=== PATIENT | female | born 1950 | race Caucasian/White ===

== ENCOUNTER 2019-02-12 22:44 | Emergency (ER) | payer OTHER ==
[2019-02-12 22:49] VITALS: TEMP 98; BMI 25.2
--- NOTE | 2019-02-12 23:06 | PDOC ---
History of Present Illness - General Chief Complaint: Blood Pressure Problem Stated Complaint: HYPERTENSION Time Seen by Provider: 02/12/19 23:06 - History of Present Illness Initial Comments: 02/12/19 23:37 Ms. Natarajan is a 68 yo female w/ pmh of HTN, HLD, and DM who presents for evaluation of 5 day history of elevated blood pressure. Patient reports she has additionally had dizziness for the last day. Patient visited her cesspool cleaner today who adjusted her medication however patient became concerned regarding dizziness. Patient had been taking clonadine .1 and losartan 100 daily. Was switched several days ago to losartan 100 and hctz 12.5; today cesspool cleaner recommended adding atenolol with chlorthalidone (50/25). The patient denies chest pain, shortness of breath, headache and dizziness. Denies fever, chills, nausea, vomit, diarrhea and constipation. Denies dysuria, frequency, urgency and hematuria. Past History - Past Medical History Allergies/Adverse Reactions: Allergies Allergy/AdvReac Type Severity Reaction Status Date / Time diclofenac Allergy Severe Rash Verified 02/12/19 23:39 Home Medications: Ambulatory Orders Atenolol/Chlorthalidone [Atenolol-Chlorthalidone 50-25] 1 each PO DAILY Atorvastatin Ca [Lipitor] 40 mg PO DAILY 02/12/19 Gabapentin [Neurontin -] 300 mg PO TID 02/12/19 Glipizide 5 mg PO BID 02/12/19 Hydrochlorothiazide [Hctz -] 12.5 mg PO DAILY 02/12/19 Losartan Potassium [Cozaar] 100 mg PO DAILY 02/12/19 COPD: No Diabetes: Yes HTN: Yes Hypercholesterolemia: Yes - Surgical History Abdominal Surgery: Yes - Suicide/Smoking/Psychosocial Hx Smoking History: Never smoked Review of Systems - Review of Systems Comments:: 02/12/19 23:42 GENERAL/CONSTITUTIONAL: No fever or chills. No weakness. HEAD, EYES, EARS, NOSE AND THROAT: No change in vision. No ear pain or discharge. No sore throat. CARDIOVASCULAR: No chest pain or shortness of breath RESPIRATORY: No cough, wheezing, or hemoptysis. GASTROINTESTINAL: No nausea, vomiting, diarrhea or constipation. GENITOURINARY: No dysuria, frequency, or change in urination. MUSCULOSKELETAL: No joint or muscle swelling or pain. No neck or back pain. SKIN: No rash NEUROLOGIC: +Dizziness starting at approximately 11:30am this morning. No headache, vertigo, loss of consciousness, or change in strength/sensation. ENDOCRINE: No increased thirst. No abnormal weight change HEMATOLOGIC/LYMPHATIC: No anemia, easy bleeding, or history of blood clots. ALLERGIC/IMMUNOLOGIC: No hives or skin allergy. *Physical Exam - Vital Signs Last Vital Signs Temp Pulse Resp BP Pulse Ox 98.0 F 58 L 18 187/89 H 95 02/12/19 22:46 02/12/19 22:46 02/12/19 22:46 02/12/19 22:46 02/12/19 22:46 - Physical Exam Comments: 02/12/19 23:44 GENERAL: Awake, alert, and fully oriented, in no acute distress HEAD: No signs of trauma, normocephalic, atraumatic EYES: PERRLA, EOMI, sclera anicteric, conjunctiva clear ENT: Auricles normal inspection, hearing grossly normal, nares patent, oropharynx clear without exudates. Moist mucosa NECK: Normal ROM, supple, no lymphadenopathy, JVD, or masses LUNGS: No distress, speaks full sentences, clear to auscultation bilaterally HEART: Regular rate and rhythm, normal S1 and S2, no murmurs, rubs or gallops, peripheral pulses normal and equal bilaterally. ABDOMEN: Soft, nontender, normoactive bowel sounds. No guarding, no rebound. No masses EXTREMITIES: Normal inspection, Normal range of motion, no edema. No clubbing or cyanosis. NEUROLOGICAL: Cranial nerves II through XII grossly intact. Normal speech, normal gait, no focal sensorimotor deficits SKIN: Warm, Dry, normal turgor, no rashes or lesions noted. Moderate Sedation - Procedure Monitoring Vital Signs: Procedure Monitoring Vital Signs Temperature 98.0 F 02/12/19 22:46 Pulse Rate 58 L 02/12/19 22:46 Respiratory Rate 18 02/12/19 22:46 Blood Pressure 187/89 H 02/12/19 22:46 O2 Sat by Pulse Oximetry (%) 95 02/12/19 22:46 ED Treatment Course - LABORATORY CBC & Chemistry Diagram: 02/12/19 23:50 02/12/19 23:50 Medical Decision Making - Medical Decision Making 02/13/19 01:20 Ms. Natarajan is a 68 yo female w/ pmh as described who presents for evaluation of symptoms of elevated BP with dizziness. Patient evaluated with cardiac labs and EKG. Given continued elevation of BP and headache symptoms on repeat evaluation , decision made to CT Head and give clonadine for pressure control. 02/13/19 01:[address] negative. 02/13/19 03:48 EKG negative. Labs grossly wnl as below. BP decreased after catapres .1mg x2. No concern for acute process at this time. Patient is asymptomatic. Discharging to home. Laboratory Results - last 24 hr 02/12/19 02/12/19 02/13/19 23:50 23:50 00:25 WBC 7.2 RBC 4.79 Hgb 14.3 Hct 41.1 MCV 85.6 MCH 29.9 MCHC 34.9 RDW 14.0 Plt Count 248 MPV 10.3 Absolute Neuts (auto) 4.1 Neutrophils % 57.1 Lymphocytes % 27.7 Monocytes % 9.4 Eosinophils % 4.7 H Basophils % 1.1 Nucleated RBC % 0 Sodium 135 L Potassium 4.9 Chloride 102 Carbon Dioxide 28 Anion Gap 5 L BUN 28 H Creatinine 1.0 Creat Clearance w eGFR 55.14 Random Glucose 195 H Calcium 9.1 Total Bilirubin 0.3 AST 34 ALT 36 Alkaline Phosphatase 100 Creatine Kinase 149 Troponin I < 0.02 Total Protein 7.5 Albumin 3.7 Urine Color Ltyellow Urine Appearance Clear Urine pH 6.0 Ur Specific Bruce 1.016 Urine Protein Negative Urine Glucose (UA) Negative Urine Ketones Negative Urine Blood Negative Urine Nitrite Negative Urine Bilirubin Negative Urine Urobilinogen Negative Ur Leukocyte Esterase 1+ H Urine WBC (Auto) 11 Urine RBC (Auto) 1 Ur Epithelial Cells Rare Urine Bacteria Rare *DC/Admit/Observation/Transfer Diagnosis at time of Disposition: High blood pressure Qualifiers: Hypertension type: unspecified Qualified Code(s): I10 - Essential (primary) hypertension - Discharge Dispostion Disposition: HOME - Referrals Referrals: Fam Deleon MD [Primary Care Provider] - - Patient Instructions Printed Discharge Instructions: DI for High Blood Pressure Additional Instructions: You were evaluated today in the ER for your high blood pressure. No concerning findings were found on EKG or head CT and your labs were all normal. Your blood pressure decreased after additional medication. Please follow-up with your primary care provider in 1-2 days for further evaluation as your home medications may need to be adjusted. Return to ER if any increase or return of headache, altered mental status, or other concerning symptoms. - Post Discharge Activity
--- NOTE | 2019-02-12 23:42 | PDOC ---
Attending Attestation - HPI HPI: 02/12/19 23:44 The patient is a 68 year old female, with a significant past medical history of HTN, HLD, and DM, who presents to the emergency department with, 5 days of elevated blood pressure and 1 day of dizziness. Patient notes going to her broth setter today at which time her blood pressure medication was altered, without relief. She denies any headache, changes in strength/sensation, or syncope. She denies recent fevers or chills. She denies recent nausea, vomit, diarrhea or constipation. She denies recent dysuria, frequency, urgency or hematuria. She denies recent chest pain or shortness of breath. Allergies: Diclofenac. Primary Care Physician: Dr. Deleon <Umair Ramirez - Last Filed: 02/12/19 23:47> - Resident Resident Name: [email or web address] - ED Attending Attestation I have performed the following: I have examined & evaluated the patient, The case was reviewed & discussed with the resident, I agree w/resident's findings & plan, Exceptions are as noted - HPI HPI: 02/13/19 04:24 Patient is describing symptoms as lightheadedness with posterior throbbing KHANNA radiating forwards, symptom onset around 11pm tonight Symptoms in context of elevated BP, BP meds being actively titrated by her broth setter - Physicial Exam PE: 02/13/19 04:26 Agree with exam as documented by resident - Medical Decision Making 02/13/19 04:26 Symptomatic htn, eval for end organ damage, concerning for possible intracranial pathology including but not limited to bleeding, cva f/u labs including trop, ekg, ct h clonidine re-eval/redose? CT neg, labs normal, trop normal, cr normal BP normalizing Symptom free on re-assessment <Madan Gray - Last Filed: 02/13/19 04:28> Attestations - Attestations 02/12/19 23:44 Documentation prepared by Umair Ramirez, acting as family practice medical doctor for Madan Gray MD. <mUair Ramirez - Last Filed: 02/12/19 23:47>
[2019-02-13 00:18] LABS: BASO % 1.1 % (0-2.0); EOS % 4.7 % (0-4.5); HEMATOCRIT 41.1 % (32.4-45.2); HEMOGLOBIN 14.3 GM/dL (10.7-15.3); LYMPH % 27.7 % (8-40); MCH 29.9 pg (25.7-33.7); MCHC 34.9 g/dl (32.0-36.0); MEAN CELL VOLUME 85.6 fl (80-96); MEAN PLT VOLUME 10.3 fl (7.5-11.1); MONO % 9.4 % (3.8-10.2); NEUT % 57.1 % (42.8-82.8); PLATELET COUNT 248 K/MM3 (134-434); RBC 4.79 M/mm3 (3.60-5.2); WHITE BLOOD COUNT 7.2 K/mm3 (4.0-10.0)
[2019-02-13 00:40] LABS: URINE APPEARANCE CLEAR; URINE BILIRUBIN NEGATIVE (<2.0 mg/dL); URINE COLOR LTYELLOW; URINE GLUCOSE (UA) NEGATIVE (NEGATIVE); URINE KETONE NEGATIVE (NEGATIVE); URINE LEUK ESTERASE 1+ (NEGATIVE); URINE NITRITE NEGATIVE (NEGATIVE); URINE PROTEIN NEGATIVE (NEGATIVE); URINE UROBILINOGEN NEGATIVE mg/dL (0.2-1.0)
[2019-02-13 00:48] LABS: EPI CELLS RARE /HPF (FEW); URINE BACTERIA RARE /hpf (NONE SEEN)
[2019-02-13 00:51] LABS: ALBUMIN 3.7 g/dl (3.4-5.0); ALK PHOS 100 U/L (45-117); ANION GAP 5 MMOL/L (8-16); BILIRUBIN,TOTAL 0.3 mg/dL (0.2-1); BLOOD UREA NITROGEN 28 mg/dL (7-18); CALCIUM 9.1 mg/dL (8.5-10.1); CHLORIDE 102 mmol/L (98-107); CO2 28 mmol/L (21-32); GLUCOSE,RANDOM 195 mg/dL (74-106); POTASSIUM 4.9 mmol/L (3.5-5.1); SGOT/AST 34 U/L (15-37); SGPT/ALT 36 U/L (13-61); SODIUM 135 mmol/L (136-145); TOT PROT 7.5 g/dl (6.4-8.2)
[2019-02-13] MEDS ORDERED: cloNIDine HCL 0.1 MG TABLET PO ONE ×2 (01:19→03:02)
[2019-02-13] MEDS ORDERED: cloNIDine HCL 0.1 MG TABLET ONE ×2 (01:32→03:03)
[2019-02-13 03:09] VITALS: PULSE 61
[2019-02-13 03:47] VITALS: BP 161/96
--- NOTE | 2019-02-13 10:56 | EKG ---
Test Reason : Blood Pressure : / mmHG Vent. Rate : 055 BPM Atrial Rate : 055 BPM P-R Int : 138 ms QRS Dur : 084 ms QT Int : 418 ms P-R-T Axes : 046 005 029 degrees QTc Int : 399 ms SINUS BRADYCARDIA NONSPECIFIC T WAVE ABNORMALITY NO PREVIOUS ECGS AVAILABLE Confirmed by EUSEBIO PRICE MD ([id number]) on 02/13/2019 10:56:02 AM Referred By: Confirmed By:EUSEBIO PRICE MD
== END 2019-02-13 04:06 | disposition home or self-care (01) ==
LOC: JER 22:44
DX: I10 Essential (primary) hypertension (principal); E78.00 Pure hypercholesterolemia, unspecified; E11.9 Type 2 diabetes mellitus without complications; Z79.84 Long term (current) use of oral hypoglycemic drugs
CPT/HCPCS: 36415; 70450-TC; 80053; 81003; 81015; 82550; 84484; 85025; 93005; 93010; 99284-25; J0735

== ENCOUNTER 2019-02-15 16:38 | Emergency (ER) | payer OTHER ==
[2019-02-15 16:45] VITALS: BP 144/79; PULSE 58; TEMP 99.6; BMI 26.8
--- NOTE | 2019-02-15 17:38 | PDOC ---
History of Present Illness - General Chief Complaint: Respiratory Stated Complaint: FLU SYMPTOMS Time Seen by Provider: 02/15/19 17:22 History Source: Patient, Family Exam Limitations: No Limitations - History of Present Illness Initial Comments: 02/15/19 17:31 Family brought in for reevaluation of persistent and worsening moist cough, fevers throat pain, nausea, and generalized body aches. Patient was diagnosed with influenza 2 days ago and is currently taking Tamiflu but states symptoms are not improving. Timing/Duration: reports: getting worse Associated Symptoms: reports: cough, fever/chills, nasal congestion, sore throat Past History - Travel Traveled outside of the country in the last 30 days: No Close contact w/someone who was outside of country & ill: No - Past Medical History Allergies/Adverse Reactions: Allergies Allergy/AdvReac Type Severity Reaction Status Date / Time diclofenac Allergy Severe Rash Verified 02/15/19 16:44 Home Medications: Ambulatory Orders Atenolol/Chlorthalidone [Atenolol-Chlorthalidone 50-25] 1 each PO DAILY Atorvastatin Ca [Lipitor] 40 mg PO DAILY 02/12/19 Gabapentin [Neurontin -] 300 mg PO TID 02/12/19 Glipizide 5 mg PO BID 02/12/19 Hydrochlorothiazide [Hctz -] 12.5 mg PO DAILY 02/12/19 Losartan Potassium [Cozaar] 100 mg PO DAILY 02/12/19 COPD: No Diabetes: Yes HTN: Yes Hypercholesterolemia: Yes - Surgical History Abdominal Surgery: Yes - Suicide/Smoking/Psychosocial Hx Smoking History: Never smoked Review of Systems - Review of Systems Able to Perform ROS?: Yes Is the patient limited Albanian proficient: Yes Constitutional: Yes: Symptoms Reported, See HPI, Chills, Fever, Malaise, Weakness HEENTM: Yes: See HPI, Nose Congestion, Throat Swelling. No: Symptoms Reported Respiratory: Yes: Symptoms reported, See HPI, Cough Musculoskeletal: Yes: Symptoms Reported Neurological: Yes: Symptoms reported, See HPI, Headache All Other Systems: Reviewed and Negative *Physical Exam - Vital Signs Last Vital Signs Temp Pulse Resp BP Pulse Ox 99.6 F 58 L 18 144/79 99 02/15/19 16:42 02/15/19 16:42 02/15/19 16:42 02/15/19 16:42 02/15/19 16:42 - Physical Exam General Appearance: Yes: Nourished, Appropriately Dressed, Apparent Distress, Moderate Distress HEENT: positive: CARLOS (glassy), Tonsillar Erythema (without exudate), Rhinorrhea , Sinus Tenderness Neck: positive: Supple Respiratory/Chest: positive: Lungs Clear. negative: Chest Tender, Normal Breath Sounds (coarse inspiratory and expiratory breath sounds worse on the right side and mildly diminished) Gastrointestinal/Abdominal: positive: Normal Bowel Sounds, Soft. negative: Tender Extremity: positive: Normal Capillary Refill Integumentary: positive: Normal Color, Dry, Warm, Pale Neurologic: positive: automotive upholsterer II-XII NML intact, Fully Oriented, Alert, Normal Mood/ Affect, Normal Response, Motor Strength 5/5 Moderate Sedation - Procedure Monitoring Vital Signs: Procedure Monitoring Vital Signs Temperature 99.6 F 02/15/19 16:42 Pulse Rate 58 L 02/15/19 16:42 Respiratory Rate 18 02/15/19 16:42 Blood Pressure 144/79 02/15/19 16:42 O2 Sat by Pulse Oximetry (%) 99 02/15/19 16:42 ED Treatment Course - RADIOLOGY Radiology Studies Ordered: Category Date Time Status CHEST PA & LAT [RAD] Stat Radiology 02/15/19 17:28 Ordered Progress Note - Progress Note Progress Note: Influenza, already diagnosed and taking Tamiflu. X-ray negative for acute infiltrate. We'll continue Tamiflu and treatment for influenza and have patient follow up with her PMD this week *DC/Admit/Observation/Transfer Diagnosis at time of Disposition: Influenza - Discharge Dispostion Disposition: HOME Condition at time of disposition: Stable Decision to Admit order: No - Referrals - Patient Instructions Printed Discharge Instructions: DI for Influenza -- Child Additional Instructions: Rest, drink lots of fluids: Teas, water, soups, Pedialyte Saltwater gargles Steamy showers/seem to face break up mucus Old-fashioned treatments help! Avoid contact with others until fevers and cough resolved as this is very contagious Lots of handwashing and good hygiene Continue [id number] medications for symptomatic relief Tylenol or Motrin for fever and pain Take all of Tamiflu as directed: 1 tab every 12 hours for 5 days Followup with private physician in one to 2 days as needed or if worsening Return to emergency department for worsened symptoms, fevers, dehydration Influenza takes between 5 and 7 days for resolution To not participate in any activity, work, or school until fevers and cough are gone for at least one day - Post Discharge Activity Forms/Work/School Notes: Back to Work
== END 2019-02-15 18:29 | disposition home or self-care (01) ==
LOC: JERFT 16:38
DX: J11.1 Influenza due to unidentified influenza virus with other respiratory manifestations (principal)
CPT/HCPCS: 71046-TC-FY; 99281-25